=== PATIENT | male | born 1955 | race Hispanic/Latino ===

== ENCOUNTER 2017-08-31 08:59 | Day surgery (SDC) | payer BC ==
[2017-07-16 09:03] VITALS: BMI 30.8
--- NOTE | 2017-08-31 09:45 | CP.SDSHP ---
Same Day Surgery H & P - History Proposed Procedure: egd eus emr Pre-Op Diagnosis: esophageal mass - Allergies Allergies: Allergies No Known Allergies Allergy (Verified 08/31/17 09:38) - Physical Exam General Appearance: nl Mental Status: Alert & Oriented x3 Neuro: WNL Heart: WNL Lungs: WNL GI: WNL - {Optional Preform as Required} Abdomen: WNL - Impression Impression: esophageal mass Pt. Evaluated Today:Candidate for Anesthesia & Procedure: Yes - Date & Time Date: 08/31/17 Time: 09:44 Short Stay Discharge - Short Stay Discharge Admitting Diagnosis/Reason for Visit: DISEASE OF ESOPHAGUS, UNSPECIFIED Disposition: HOME/ ROUTINE
[2017-08-31] MEDS ORDERED: Lidocaine Hydrochloride 10 ML INJ ONE (10:20)
[2017-08-31] MEDS ORDERED: Rocuronium 10 mg/ml (5 ml) ONE (10:20)
[2017-08-31] MEDS ORDERED: Succinylcholine Chloride 20 mg/ml Syr (5 ml) IV ONE (10:20)
[2017-08-31] MEDS ORDERED: Propofol 10 mg/ml Inj (20 ML) ONE (10:21)
[2017-08-31] MEDS ORDERED: Phenylephrine 10 mg/ml Inj ONE (10:28)
[2017-08-31] MEDS ORDERED: ePHEDrine 50 mg/ml Inj ONE (10:28)
[2017-08-31] MEDS ORDERED: Neostigmine Methylsulfate 3mg/3ml Syringe IV ONE (10:52)
[2017-08-31 11:08] VITALS: TEMP 97.3
[2017-08-31 11:26] VITALS: O2SAT 97
[2017-08-31 11:37] VITALS: RESP 18
[2017-08-31 13:26] VITALS: PULSE 106
[2017-08-31 13:28] VITALS: BP 130/81
== END 2017-08-31 12:40 | disposition home or self-care (01) ==
LOC: C.ENDO 08:59
PROVIDERS: ATTEND Internal Medicine
DX: C15.5 Malignant neoplasm of lower third of esophagus (principal); K26.9 Duodenal ulcer, unspecified as acute or chronic, without hemorrhage or perforation; K29.70 Gastritis, unspecified, without bleeding; K44.9 Diaphragmatic hernia without obstruction or gangrene
CPT/HCPCS: 43238; 43239; 88305; J2370; J2704; J2710; J3010; J7040

== ENCOUNTER 2017-09-14 06:53 | Day surgery (SDC) | payer BC ==
[2017-09-14 07:56] VITALS: BMI 29.5
[2017-09-14] MEDS ORDERED: Lactated Ringer's 1,000 ML IV ONE (09:15)
[2017-09-14] MEDS ORDERED: Succinylcholine Chloride 20 mg/ml Syr (5 ml) IV ONE (09:38)
[2017-09-14] MEDS ORDERED: Etomidate 20 mg/10ml Inj IV ONE (09:39)
[2017-09-14] MEDS ORDERED: Rocuronium 10 mg/ml (5 ml) ONE (09:39)
[2017-09-14] MEDS ORDERED: Neostigmine Methylsulfate 3mg/3ml Syringe IV ONE (11:15)
[2017-09-14 14:55] VITALS: TEMP 98.4
[2017-09-14 15:01] VITALS: O2SAT 95
[2017-09-14 15:03] VITALS: PULSE 97; RESP 18
[2017-09-14 15:06] VITALS: BP 118/75
== END 2017-09-14 12:54 | disposition home or self-care (01) ==
LOC: C.ENDO 06:53
PROVIDERS: ATTEND Internal Medicine
DX: C15.9 Malignant neoplasm of esophagus, unspecified (principal)
CPT/HCPCS: 43235; 88305; 88307; 88331; J2001; J2710; J3010; J7120